=== PATIENT | male | born 1980 | race Caucasian/White ===

== ENCOUNTER 2019-09-06 16:21 | Outpatient (CLI) | payer SELFPAY ==
--- NOTE | 2019-09-06 16:30 | CTR_ITS ---
PROCEDURE INFORMATION: Exam: CT Maxillofacial Without Contrast Exam date and time: 09/06/2019 4:43 PM Age: 39 years old Clinical indication: Other: Recurrent sinus infections; Additional info: Recurrent, frequent sinus infections TECHNIQUE: Imaging protocol: Computed tomography images of the face without contrast. Total DLP: 669.55 mGy-cm Radiation optimization: All CT scans at this facility use at least one of these dose optimization techniques: automated exposure control; mA and/or kV adjustment per patient size (includes targeted exams where dose is matched to clinical indication); or iterative reconstruction. COMPARISON: No relevant prior studies available. FINDINGS: Orbits: Orbits are normal. Globes are unremarkable. Sinuses: There is diffuse extensive mucosal thickening of both maxillary sinuses. There is a small air-fluid level within both maxillary sinuses compatible with bilateral maxillary sinusitis. There is just trace mucosal thickening in the ethmoidal air cells. The remaining sinuses are clear. The ostiomeatal complex is opacified on the left and markedly narrowed on the right. Bones/joints: No bony destruction or osteomyelitis. Soft tissues: Unremarkable. CT/CT sinus wo con* [id number] IMPRESSION: There is diffuse extensive mucosal thickening of both maxillary sinuses. There is a small air-fluid level within both maxillary sinuses compatible with bilateral maxillary sinusitis. Radiation Dose CTDIVOL = (mGy): DLP = 669.55 (mGy-cm)
== END 2019-09-06 16:22 | disposition home or self-care (01) ==
LOC: RAD 16:38
PROVIDERS: Visit Provider Emergency Medicine
DX: J32.0 Chronic maxillary sinusitis (principal)
CPT/HCPCS: 70486